=== PATIENT | male | born 1985 | race Two or more races ===

== ENCOUNTER 2018-01-12 11:31 | Emergency (ER) | payer OTHER ==
[2018-01-12 11:40] VITALS: BP 146/90; PULSE 96; TEMP 97.6; BMI 38.5
[2018-01-12] MEDS ORDERED: LIDOCAINE HCL 1%, 10 MG/ML (50 mL VIAL) SQ ONE (12:02)
[2018-01-12] MEDS ORDERED: LIDOCAINE HCL 1%, 10 MG/ML (20ML VIAL) ONE (12:03)
--- NOTE | 2018-01-12 12:35 | PDOC ---
History of Present Illness - General Chief Complaint: Injury Stated Complaint: RT ANKLE PAIN Time Seen by Provider: 01/12/18 11:36 - History of Present Illness Initial Comments: 01/12/18 12:31 32-year-old male with a past medical history significant for hypertension and anxiety presents for evaluation of a traumatic right ankle swelling times one day. He describes his pain as achy has an inability to bear weight there was no associated trauma no radiation of symptoms Past History - Past Medical History Allergies/Adverse Reactions: Allergies Allergy/AdvReac Type Severity Reaction Status Date / Time No Known Allergies Allergy Verified 01/12/18 12:02 Home Medications: Ambulatory Orders Ibuprofen [Motrin -] 600 mg PO TID #30 tablet 01/12/18 Metoprolol Succinate 25 mg PO DAILY 01/12/18 Paroxetine HCl [Paxil -] 10 mg PO DAILY 01/12/18 Quetiapine Fumarate [Seroquel -] 25 mg PO HS 01/12/18 COPD: No HTN: Yes - Suicide/Smoking/Psychosocial Hx Smoking Status: No Smoking History: Never smoked Number of Cigarettes Smoked Daily: 0 Review of Systems - Review of Systems Constitutional: No: Chills, Diaphoresis, Fever, Malaise, Night Sweats Musculoskeletal: Yes: See HPI, Joint Pain *Physical Exam - Vital Signs Last Vital Signs Temp Pulse Resp BP Pulse Ox 97.6 F 96 H 20 146/90 01/12/18 11:33 01/12/18 11:33 01/12/18 11:33 01/12/18 11:33 - Physical Exam Comments: 01/12/18 12:32 Right ankle skin color and temperature are normal there is swelling about the joint line of the right ankle. There is decreased range of motion however passive range of motion is nonpainful for about the first 10 from neutral in plantar and dorsiflexion. There is diffuse tenderness which is nonspecific about the joint. No gross sensorimotor deficits she is neurovascular intact. Thigh and calf are soft and nontender. ED Treatment Course - Medications Given in the ED: ED Medications Discontinued Medications Generic Name Dose Route Start Last Admin Trade Name Freq PRN Reason Stop Dose Admin Lidocaine HCl 10 ml 01/12/18 12:02 01/12/18 12:09 Xylocaine 1% SQ 01/12/18 12:03 10 ml ONCE ONE Administration Medical Decision Making - Medical Decision Making Under aseptic technique the right ankle was anesthetized with 10 mL of lidocaine into the tibiotalar joint this was tolerated well an 18 gauge needle was used to aspirate the joint. However the joint was dried there was only one drop of fluid in the 60 mL syringe which was sent for fluid evaluation. A dry sterile dressing was placed as well as a compression wrap. The patient was placed on a short course of anti-inflammatories and marketing services coordinator follow-up was given. Weight-bear as tolerated with use of crutches. 01/12/18 12:33 *DC/Admit/Observation/Transfer Diagnosis at time of Disposition: Arthritis of ankle, right - Discharge Dispostion Disposition: HOME Condition at time of disposition: Stable Decision to Admit order: No - Referrals Referrals: Carlyle Mcgregor [Primary Care Provider] - Travis Nevarez [Non Staff, Medical] - Rohit Park [Non Staff, Medical] - Ion Witt MD [Non Staff, Medical] - Naila Vanessa MD [Non Staff, Medical] - Fatou Reynaga [Non Staff, Medical] - Rajeev Ross MD [Non Staff, Medical] - Paulina Edwards MD [Non Staff, Medical] - Moody Streeter [Non Staff, Medical] - - Patient Instructions Additional Instructions: Return to the emergency room should symptoms worsen or go unresolved. Please take the anti-inflammatory one pill 3 times a day with food and discontinue the medication if it bothers her stomach. He may weight-bear as tolerated with use of crutches follow-up with rheumatology in one to 2 days for further evaluation and treatment options. - Post Discharge Activity
== END 2018-01-12 12:43 | disposition home or self-care (01) ==
LOC: JER 11:31 → JERFT 11:31
PROC: 0S9F3ZZ Drainage of Right Ankle Joint, Percutaneous Approach (ICD-10-PCS; principal; 2018-01-12)
DX: M19.071 Primary osteoarthritis, right ankle and foot (principal); I10 Essential (primary) hypertension
CPT/HCPCS: 20605; 99281-25